=== PATIENT | male | born 1955 | race Caucasian/White ===

== ENCOUNTER → 2020-12-14 | Outpatient (CLI) | payer BC ==
[~2020-12-14] MED LIST: ASPI81TA45 PO; ATOR40TA78 PO; HYDR-826 PO; LORA-439 PO; METO50TA82 PO; OMEP-110 PO; SERT50TA28 PO
[2020-12-14 15:27] LABS: BASOPHILS % (AUTO) 1 % (0-1); EOSINOPHILS % (AUTO) 1 % (1-7); LYMPHOCYTES % (AUTO) 17 % (22-44); MEAN CORPUSCULAR HEMOGLOBIN 30.2 pg (27.5-34.5); MEAN CORPUSCULAR HGB CONC 33.8 g/dL (33.2-36.2); MEAN PLATELET VOLUME 8.8 fL (7.4-10.4); MONOCYTES % (AUTO) 5 % (2-9); NEUTROPHILS % (AUTO) 76 % (42-75); PLATELET COUNT 188 x10^3/uL (130-400); RED BLOOD COUNT 4.96 x10^6/uL (4.38-5.82); RED CELL DISTRIBUTION WIDTH 13.3 % (9.4-14.8)
[2020-12-14 15:29] LABS: MD NO
[2020-12-14 15:32] LABS: ALANINE AMINOTRANSFERASE 26 U/L (12-78); ANION GAP 6 mmol/L (5-15); CALCIUM 8.8 mg/dL (8.5-10.1); CHLORIDE 104 mmol/L (98-107)
[2020-12-14 15:34] LABS: ALKALINE PHOSPHATASE 83 U/L (45-117); BILIRUBIN,TOTAL 1.2 mg/dL (0.2-1.0); TOTAL PROTEIN 7.9 g/dL (6.4-8.2)
== END | disposition home or self-care (01) ==
LOC: STAR 14:03
PROVIDERS: ATTEND Surgery
DX: Z01.812 Encounter for preprocedural laboratory examination (principal); I45.2 Bifascicular block; Z20.822 Contact with and (suspected) exposure to COVID-19
CPT/HCPCS: 36415; 71046; 80053; 85025; 93005; U0003

== ENCOUNTER 2021-01-19 18:53 | Inpatient (IN) | payer BC ==
[~2021-01-19] VITALS: Ht 175.3 cm; Wt 70.2 kg
[~2021-01-19 18:53] MED LIST changes: +CEPH-376 PO; +CLOP75TA PO; +DOCU-131 PO; +OXYC5TAB98 PO
[2021-01-19] MEDS ORDERED: LORazepam 1MG TABLET ONE (19:29)
[2021-01-19] MEDS ORDERED: LORazepam 1MG TABLET PO ONE (19:30)
[2021-01-19] MEDS ORDERED: SODIUM CHLORIDE FLUSH 10ML SYR IVF ONE (19:30)
[2021-01-19] MEDS ORDERED: KRATOM (19:36)
[2021-01-19] MEDS ORDERED: CLOP75TA52 PO (19:38)
[2021-01-19 19:56] LABS: BASOPHILS % (AUTO) 1 % (0-1); EOSINOPHILS % (AUTO) 4 % (1-7); LYMPHOCYTES % (AUTO) 29 % (22-44); MEAN CORPUSCULAR HEMOGLOBIN 29.6 pg (27.5-34.5); MEAN CORPUSCULAR HGB CONC 33.5 g/dL (33.2-36.2); MEAN PLATELET VOLUME 9.3 fL (7.4-10.4); MONOCYTES % (AUTO) 6 % (2-9); NEUTROPHILS % (AUTO) 60 % (42-75); PLATELET COUNT 198 x10^3/uL (130-400); RED BLOOD COUNT 4.57 x10^6/uL (4.38-5.82)
[2021-01-19 20:05] LABS: ALANINE AMINOTRANSFERASE 19 U/L (12-78); ALBUMIN 3.9 g/dL (3.4-5.0); ANION GAP 7 mmol/L (5-15); CALCIUM 9.5 mg/dL (8.5-10.1); CHLORIDE 102 mmol/L (98-107); CREATININE 1.08 mg/dL (0.7-1.3)
[2021-01-19 20:08] LABS: ALKALINE PHOSPHATASE 77 U/L (45-117); BILIRUBIN,TOTAL 1.2 mg/dL (0.2-1.0); TOTAL PROTEIN 7.9 g/dL (6.4-8.2)
[2021-01-19 20:11] LABS: MD NO
--- NOTE | 2021-01-19 20:15 | NUR ---
PT REPORTS HE HAD GRAFT SURGERY LAST MONTH ON THE , SINCE THEN HIS INCISION ON THE RIGHT FEMORAL HAS OPENED AND HE HAS A WOUND. DR WISE AWARE. PT REPORTS DR WISE WANTED HIM TO COME IN AND POSSIBLY HAVE SURGERY. PT HAS SOME ANXIETY, PT GIVEN ATIVAN. VS STABLE. FAMILY AT BEDSIDE. CALL LIGHT IN PLACE.
--- NOTE | 2021-01-19 20:34 | NUR ---
PT REQUESTING A WAFFEL MATTRESS FOR COMFORT. PT ON MATTRESS. VS STABLE. BEDSIDE REPORT GIVEN TO STORM HOSKINS.
--- NOTE | 2021-01-19 20:42 | NUR ---
DR MCGINNIS HAS UPDATED PATIENT
[2021-01-19] MEDS ORDERED: LORazepam 2 MG/ML, 1ML ONE ×3 (20:44→22:41)
--- NOTE | 2021-01-19 20:50 | NUR ---
BIALTERAL DP PULSE NON-PALPABLE. HOWEVER BOTH WITH 2+ DOPPLER SIGNALS
--- NOTE | 2021-01-19 20:56 | NUR ---
REPORT FROM HENRIETTA INMAN PATIENT TO RADIOLOGY FOR CT OF LOWER EXTREMITIES
[2021-01-19] MEDS ORDERED: LORazepam 2 MG/ML, 1ML IVPush ONE ×3 (21:00→23:00)
--- NOTE | 2021-01-19 21:17 | NUR ---
medicated for continued agitation in CT New piv placed via ultrasound as prior piv infiltrated
[2021-01-19] MEDS ORDERED: OMNIPAQUE 350 MG/ML, 150 ML BOTTLE ONE (21:30)
[2021-01-19] MEDS ORDERED: HALOPERIDOL 5 MG/ML ONE ×2 (22:27→22:41)
[2021-01-19] MEDS ORDERED: HALOPERIDOL 5 MG/ML IV ONE ×2 (22:30→23:00)
--- NOTE | 2021-01-19 23:02 | NUR ---
Dr. montes able to dress foot and groin wounds Patient re-medicated for continued agitation once calm-covid swab obtained pre OR-walked to lab
[2021-01-20] MEDS ORDERED: HALOPERIDOL 5 MG/ML IM PRN
[2021-01-20] MEDS ORDERED: DOCUSATE 100 MG CAPSULE PO PRN (01:00)
[2021-01-20] MEDS ORDERED: MELATONIN 5 MG TABLET PO PRN (01:00)
[2021-01-20] MEDS ORDERED: ACETAMINOPHEN 325 MG TABLET PO PRN (01:00)
[2021-01-20] MEDS: ATORVASTATIN 40 MG TABLET PO SCH ×2 (01:00→19:53)
[2021-01-20] MEDS ORDERED: LIDODERM 5% PATCH TD PRN (01:00)
[2021-01-20 01:35] VITALS: BP 121/58
[2021-01-20 04:57] LABS: BASOPHILS % (AUTO) 2 % (0-1); EOSINOPHILS % (AUTO) 4 % (1-7); LYMPHOCYTES % (AUTO) 26 % (22-44); MEAN CORPUSCULAR HEMOGLOBIN 29.7 pg (27.5-34.5); MEAN CORPUSCULAR HGB CONC 33.5 g/dL (33.2-36.2); MEAN PLATELET VOLUME 9.1 fL (7.4-10.4); MONOCYTES % (AUTO) 9 % (2-9); NEUTROPHILS % (AUTO) 59 % (42-75); PLATELET COUNT 172 x10^3/uL (130-400); RED BLOOD COUNT 4.08 x10^6/uL (4.38-5.82); RED CELL DISTRIBUTION WIDTH 14.1 % (9.4-14.8)
[2021-01-20 05:09] LABS: ANION GAP 6 mmol/L (5-15); CALCIUM 9.2 mg/dL (8.5-10.1); CHLORIDE 104 mmol/L (98-107)
[2021-01-20 05:27] LABS: MD NO
[2021-01-20 05:45] LABS: MICROSCOPIC NOT IND
[2021-01-20 06:51] VITALS: BP 158/72
[2021-01-20] MEDS ORDERED: HEPARIN 1,000 UNITS/ML, 10ML ONE (07:58)
[2021-01-20] MEDS ORDERED: BACITRACIN 50,000 UNIT ONE (07:58)
[2021-01-20] MEDS ORDERED: THROMBIN 5,000 UNIT VIAL TP ONE (07:58)
[2021-01-20] MEDS: SERTRALINE 50MG TABLET PO SCH (09:00)
[2021-01-20] MEDS: OMEPRAZOLE 20 MG CAPSULE.DR PO SCH (09:00)
[2021-01-20] MEDS: CLOPIDOGREL 75 MG TABLET PO SCH (09:00)
[2021-01-20] MEDS: METOPROLOL TARTRATE 50 MG TAB PO SCH (09:00)
[2021-01-20] MEDS: LORATADINE 10 MG TABLET PO SCH (09:00)
[2021-01-20] MEDS: ASPIRIN 81 MG TABLET EC PO SCH (09:00)
[2021-01-20] MEDS ORDERED: ONDANSETRON 2MG/ML, 2ML ONE (09:04)
[2021-01-20] MEDS ORDERED: ROCURONIUM 10MG/ML,5ML ONE (09:04)
[2021-01-20] MEDS ORDERED: LIDOCAINE-MPF 2% ,5ML ONE (09:04)
[2021-01-20] MEDS ORDERED: DEXAMETHASONE 4 MG/ML, 1ML ONE (09:04)
[2021-01-20] MEDS ORDERED: PROPOFOL 10 MG/ML, 20ML ONE (09:04)
[2021-01-20] MEDS ORDERED: SODIUM CHLORIDE 0.9% PF 10ML ONE (09:04)
[2021-01-20] MEDS ORDERED: CEFAZOLIN 1,000 MG ONE (09:04)
[2021-01-20] MEDS ORDERED: FENTANYL PF 250 MCG/5ML ONE (09:04)
[2021-01-20] MEDS ORDERED: SUGAMMADEX 200 MG/2 ML IVPush ONE (09:35)
[2021-01-20] MEDS ORDERED: OXYcodone 5 MG/5 ML ORAL.SOL UDC PO PRN (10:00)
[2021-01-20] MEDS ORDERED: ALBUTEROL SULFATE 2.5 MG/3 ML NPPB PRN (10:00)
[2021-01-20] MEDS ORDERED: PROMETHAZINE 25 MG/ML, 1ML IV PRN (10:00)
[2021-01-20] MEDS ORDERED: LABETALOL 5MG/ML, 20ML IV PRN (10:00)
[2021-01-20] MEDS ORDERED: morphine SULFATE 10 MG/ML, 1ML IV PRN (10:00)
[2021-01-20] MEDS ORDERED: hydrALAzine 20 MG/ML, 1ML IV PRN (10:00)
[2021-01-20] MEDS ORDERED: MEPERIDINE/PF 25MG/0.5ML IVPush PRN (10:00)
[2021-01-20] MEDS ORDERED: FENTANYL PF 100 MCG/2ML IV PRN (10:00)
[2021-01-20] MEDS ORDERED: MIDAZOLAM 1 MG/ML, 2ML IV PRN (10:00)
[2021-01-20] MEDS ORDERED: ONDANSETRON 2MG/ML, 2ML IVPush PRN (10:00)
[2021-01-20] MEDS ORDERED: HYDROmorphone 2 MG/ML, 1ML IVPush PRN (10:00)
[2021-01-20] MEDS ORDERED: FENTANYL PF 100 MCG/2ML ONE (10:09)
[2021-01-20] MEDS ORDERED: OXYcodone 5 MG/5 ML ORAL.SOL UDC ONE (10:09)
[2021-01-20] MEDS ORDERED: HYDROmorphone 1 MG/ML, 1ML INJ ONE (10:09)
[2021-01-20 13:09] VITALS: BP 136/55
[2021-01-20] MEDS ORDERED: QUETIAPINE 25MG TABLET PO PRN (15:00)
[2021-01-20] MEDS ORDERED: PHARMACY INSTRUCTION MC PRN (15:00)
[2021-01-20] MEDS ORDERED: CEFAZOLIN 1,000 MG IM SCH (15:00)
[2021-01-20] MEDS ORDERED: INSTRUCTION SEE COMMENTS XX PRN (15:00)
[2021-01-20] MEDS: CEFAZOLIN PMX 1GM/50ML 50 ML IV SCH (15:45)
[2021-01-20 18:55] VITALS: BP 142/56
[2021-01-20] MEDS: MELATONIN 3 MG TABLET PO SCH (19:55)
[2021-01-20] MEDS ORDERED: CEFAZOLIN 1,000 MG IVPB SCH (23:00)
[2021-01-21] MEDS: CEFAZOLIN PMX 1GM/50ML 50 ML IV SCH ×2 (00:04→09:17)
[2021-01-21 02:34] VITALS: BP 122/67
[2021-01-21] MEDS: hydrOXyzine 10MG TABLET PO PRN ×2 (03:50→18:42)
[2021-01-21 04:18] VITALS: BP 141/82
[2021-01-21 05:04] LABS: BASOPHILS % (AUTO) 1 % (0-1); EOSINOPHILS % (AUTO) 1 % (1-7); LYMPHOCYTES % (AUTO) 23 % (22-44); MEAN CORPUSCULAR HEMOGLOBIN 29.9 pg (27.5-34.5); MEAN CORPUSCULAR HGB CONC 34.2 g/dL (33.2-36.2); MEAN PLATELET VOLUME 9.5 fL (7.4-10.4); MONOCYTES % (AUTO) 9 % (2-9); NEUTROPHILS % (AUTO) 66 % (42-75); PLATELET COUNT 159 x10^3/uL (130-400); RED BLOOD COUNT 3.77 x10^6/uL (4.38-5.82); RED CELL DISTRIBUTION WIDTH 13.9 % (9.4-14.8)
[2021-01-21 05:08] LABS: MD NO
[2021-01-21 05:17] LABS: CHLORIDE 103 mmol/L (98-107)
[2021-01-21 05:28] LABS: ALANINE AMINOTRANSFERASE 15 U/L (12-78); ALBUMIN 3.6 g/dL (3.4-5.0); ALKALINE PHOSPHATASE 60 U/L (45-117); ANION GAP 10 mmol/L (5-15); BILIRUBIN,TOTAL 1.1 mg/dL (0.2-1.0); CALCIUM 9.4 mg/dL (8.5-10.1); CREATININE 0.78 mg/dL (0.7-1.3)
[2021-01-21 07:10] VITALS: BP 156/66
[2021-01-21] MEDS: ASPIRIN 81 MG TABLET EC PO SCH (09:14)
[2021-01-21] MEDS: OMEPRAZOLE 20 MG CAPSULE.DR PO SCH (09:14)
[2021-01-21] MEDS: SERTRALINE 50MG TABLET PO SCH (09:14)
[2021-01-21] MEDS: CLOPIDOGREL 75 MG TABLET PO SCH (09:14)
[2021-01-21] MEDS: LORATADINE 10 MG TABLET PO SCH (09:14)
[2021-01-21] MEDS: METOPROLOL TARTRATE 50 MG TAB PO SCH (09:15)
[2021-01-21] MEDS ORDERED: VANCOMYCIN PER PHARMACY MC PRN (12:00)
[2021-01-21] MEDS ORDERED: CEFTRIAXONE 1,000 MG in DEXTROSE 5% 50 ML IVPB SCH (12:00)
[2021-01-21] MEDS ORDERED: PHARMACOKINETIC MONITORING MC PRN (12:00)
[2021-01-21] MEDS ORDERED: VANCOMYCIN 1,800 MG in SODIUM CHLORIDE 0.9% 250 ML IV ONE (12:00)
[2021-01-21] MEDS ORDERED: PHARMACOKINETIC CONSULTATION MC ONE (12:00)
[2021-01-21 13:55] VITALS: BP 112/66
[2021-01-21] MEDS: NICOTINE 21 MG/24 HR PATCH.TD24 TD SCH (18:00)
[2021-01-21 19:17] VITALS: BP 118/62
[2021-01-21] MEDS: ATORVASTATIN 40 MG TABLET PO SCH (20:18)
[2021-01-21] MEDS: MELATONIN 3 MG TABLET PO SCH (20:18)
[2021-01-22 01:35] VITALS: BP 154/75
[2021-01-22] MEDS ORDERED: VANCOMYCIN 1,800 MG in SODIUM CHLORIDE 0.9% 250 ML IV SCH (05:00)
[2021-01-22 05:08] LABS: BASOPHILS % (AUTO) 1 % (0-1); EOSINOPHILS % (AUTO) 2 % (1-7); LYMPHOCYTES % (AUTO) 28 % (22-44); MEAN CORPUSCULAR HEMOGLOBIN 29.4 pg (27.5-34.5); MEAN CORPUSCULAR HGB CONC 33.9 g/dL (33.2-36.2); MEAN PLATELET VOLUME 9.5 fL (7.4-10.4); MONOCYTES % (AUTO) 8 % (2-9); NEUTROPHILS % (AUTO) 61 % (42-75); PLATELET COUNT 175 x10^3/uL (130-400); RED BLOOD COUNT 4.11 x10^6/uL (4.38-5.82)
[2021-01-22 05:11] LABS: MD NO
[2021-01-22 05:15] LABS: ANION GAP 6 mmol/L (5-15); CALCIUM 9.1 mg/dL (8.5-10.1); CHLORIDE 105 mmol/L (98-107)
[2021-01-22 05:23] LABS: CREATININE 0.74 mg/dL (0.7-1.3)
[2021-01-22 07:03] VITALS: BP_SYST 129; BP_DIAS 0; BP_DIAS 70
[2021-01-22] MEDS: NICOTINE 21 MG/24 HR PATCH.TD24 TD SCH (08:12)
[2021-01-22] MEDS: OMEPRAZOLE 20 MG CAPSULE.DR PO SCH (08:13)
[2021-01-22] MEDS: ASPIRIN 81 MG TABLET EC PO SCH (08:13)
[2021-01-22] MEDS: SERTRALINE 50MG TABLET PO SCH (08:13)
[2021-01-22] MEDS: CLOPIDOGREL 75 MG TABLET PO SCH (08:14)
[2021-01-22] MEDS: METOPROLOL TARTRATE 50 MG TAB PO SCH (08:14)
[2021-01-22] MEDS: LORATADINE 10 MG TABLET PO SCH (08:15)
[2021-01-22] MEDS ORDERED: PIPERACILLIN/TAZO 3.375 GM in DEXTROSE 5% 50 ML IV SCH (10:00)
[2021-01-22 12:50] VITALS: BP 158/71
[2021-01-22] MEDS: CEFEPIME 2 GM in DEXTROSE 5% 100 ML IV SCH ×2 (15:20→23:19)
[2021-01-22] MEDS: PIPERACILLIN/TAZO 4.5 GM in DEXTROSE 5% 100 ML IVPB SCH ×2 (16:37→22:21)
[2021-01-22 19:09] VITALS: BP 110/55
[2021-01-22] MEDS: ATORVASTATIN 40 MG TABLET PO SCH (21:39)
[2021-01-22] MEDS: MELATONIN 3 MG TABLET PO SCH (21:39)
[2021-01-23 00:32] VITALS: BP 108/67
[2021-01-23] MEDS: PIPERACILLIN/TAZO 4.5 GM in DEXTROSE 5% 100 ML IVPB SCH ×4 (04:19→22:29)
[2021-01-23 05:41] LABS: BASOPHILS % (AUTO) 1 % (0-1); EOSINOPHILS % (AUTO) 4 % (1-7); LYMPHOCYTES % (AUTO) 30 % (22-44); MEAN CORPUSCULAR HEMOGLOBIN 29.7 pg (27.5-34.5); MEAN CORPUSCULAR HGB CONC 34.2 g/dL (33.2-36.2); MEAN PLATELET VOLUME 9.5 fL (7.4-10.4); MONOCYTES % (AUTO) 8 % (2-9); NEUTROPHILS % (AUTO) 57 % (42-75); PLATELET COUNT 190 x10^3/uL (130-400); RED BLOOD COUNT 4.24 x10^6/uL (4.38-5.82); RED CELL DISTRIBUTION WIDTH 13.8 % (9.4-14.8)
[2021-01-23 05:45] LABS: MD NO
[2021-01-23 05:53] LABS: ANION GAP 8 mmol/L (5-15); CALCIUM 8.9 mg/dL (8.5-10.1); CHLORIDE 102 mmol/L (98-107)
[2021-01-23 05:54] LABS: CREATININE 0.94 mg/dL (0.7-1.3)
[2021-01-23 06:32] VITALS: BP_SYST 117; BP_SYST 144; BP_DIAS 71; BP_DIAS 82
[2021-01-23] MEDS: CEFEPIME 2 GM in DEXTROSE 5% 100 ML IV SCH (06:32)
[2021-01-23] MEDS: CLOPIDOGREL 75 MG TABLET PO SCH (08:45)
[2021-01-23] MEDS: ASPIRIN 81 MG TABLET EC PO SCH (08:45)
[2021-01-23] MEDS: LORATADINE 10 MG TABLET PO SCH (08:45)
[2021-01-23] MEDS: NICOTINE 21 MG/24 HR PATCH.TD24 TD SCH (08:45)
[2021-01-23] MEDS: SERTRALINE 50MG TABLET PO SCH (08:45)
[2021-01-23] MEDS: METOPROLOL TARTRATE 50 MG TAB PO SCH (08:45)
[2021-01-23] MEDS: OMEPRAZOLE 20 MG CAPSULE.DR PO SCH (08:45)
[2021-01-23 13:50] VITALS: BP 120/68
[2021-01-23 19:38] VITALS: BP 99/65
[2021-01-23] MEDS: MELATONIN 3 MG TABLET PO SCH (20:52)
[2021-01-23] MEDS: ATORVASTATIN 40 MG TABLET PO SCH (20:52)
[2021-01-23] MEDS: TEMAZEPAM 15 MG CAPSULE PO SCH (22:29)
[2021-01-24] MEDS: PIPERACILLIN/TAZO 4.5 GM in DEXTROSE 5% 100 ML IVPB SCH ×3 (04:20→18:15)
[2021-01-24 04:23] VITALS: BP 155/66
[2021-01-24 07:05] VITALS: BP 174/119
[2021-01-24 07:07] VITALS: BP 174/68
[2021-01-24 07:52] VITALS: BP 130/72
[2021-01-24] MEDS: ASPIRIN 81 MG TABLET EC PO SCH (07:54)
[2021-01-24] MEDS: CLOPIDOGREL 75 MG TABLET PO SCH (07:54)
[2021-01-24] MEDS: METOPROLOL TARTRATE 50 MG TAB PO SCH (07:54)
[2021-01-24] MEDS: SERTRALINE 50MG TABLET PO SCH (07:55)
[2021-01-24] MEDS: OMEPRAZOLE 20 MG CAPSULE.DR PO SCH (07:55)
[2021-01-24] MEDS: LORATADINE 10 MG TABLET PO SCH (07:56)
[2021-01-24] MEDS: NICOTINE 21 MG/24 HR PATCH.TD24 TD SCH (08:02)
[2021-01-24] MEDS ORDERED: ALBUMIN HUMAN 25% 100 ML IV ONE (11:00)
[2021-01-24] MEDS ORDERED: SODIUM CHLORIDE 0.9%, 500ML IVBOLUS ONE (11:00)
[2021-01-24 13:57] VITALS: BP 132/72
[2021-01-24 19:28] VITALS: BP 128/62
[2021-01-24] MEDS: MELATONIN 3 MG TABLET PO SCH (20:14)
[2021-01-24] MEDS: ATORVASTATIN 40 MG TABLET PO SCH (20:14)
[2021-01-24] MEDS: TEMAZEPAM 15 MG CAPSULE PO SCH (21:51)
[2021-01-25] MEDS: PIPERACILLIN/TAZO 4.5 GM in DEXTROSE 5% 100 ML IVPB SCH ×4 (00:23→18:04)
[2021-01-25 01:05] VITALS: BP 102/67
[2021-01-25 06:05] LABS: BASOPHILS % (AUTO) 3 % (0-1); EOSINOPHILS % (AUTO) 8 % (1-7); HCT (SEDRATE) 35.6 % (39.2-51.8); LYMPHOCYTES % (AUTO) 38 % (22-44); MEAN CORPUSCULAR HEMOGLOBIN 29.5 pg (27.5-34.5); MEAN CORPUSCULAR HGB CONC 33.6 g/dL (33.2-36.2); MEAN PLATELET VOLUME 9.5 fL (7.4-10.4); MONOCYTES % (AUTO) 9 % (2-9); NEUTROPHILS % (AUTO) 43 % (42-75); PLATELET COUNT 190 x10^3/uL (130-400); RED BLOOD COUNT 4.07 x10^6/uL (4.38-5.82); RED CELL DISTRIBUTION WIDTH 13.9 % (9.4-14.8)
[2021-01-25 06:17] LABS: ALBUMIN 3.3 g/dL (3.4-5.0); ANION GAP 7 mmol/L (5-15); CALCIUM 8.8 mg/dL (8.5-10.1); CHLORIDE 109 mmol/L (98-107)
[2021-01-25 06:21] LABS: ALANINE AMINOTRANSFERASE 20 U/L (12-78); ALKALINE PHOSPHATASE 53 U/L (45-117); BILIRUBIN,TOTAL 0.9 mg/dL (0.2-1.0); C-REACTIVE PROTEIN, QUANT 0.57 mg/dL (0.02-0.49); CREATININE 0.72 mg/dL (0.7-1.3); TOTAL PROTEIN 6.5 g/dL (6.4-8.2)
[2021-01-25 06:32] LABS: MD SCAN
[2021-01-25 07:16] VITALS: BP 110/70
[2021-01-25 08:49] VITALS: BP 118/66
[2021-01-25] MEDS: NICOTINE 21 MG/24 HR PATCH.TD24 TD SCH (08:50)
[2021-01-25] MEDS: OMEPRAZOLE 20 MG CAPSULE.DR PO SCH (08:50)
[2021-01-25] MEDS: ASPIRIN 81 MG TABLET EC PO SCH (08:51)
[2021-01-25] MEDS: SERTRALINE 50MG TABLET PO SCH (08:51)
[2021-01-25] MEDS: CLOPIDOGREL 75 MG TABLET PO SCH (08:51)
[2021-01-25] MEDS: LORATADINE 10 MG TABLET PO SCH (08:52)
[2021-01-25] MEDS: METOPROLOL TARTRATE 50 MG TAB PO SCH (08:52)
[2021-01-25] MEDS ORDERED: morphine SULFATE 10 MG/ML, 1ML IVPush PRN (10:00)
[2021-01-25 13:35] VITALS: BP 101/56
[2021-01-25] MEDS ORDERED: POTASSIUM CHLORIDE 20 MEQ TAB.ER.PRT PO ONE (17:30)
[2021-01-25 19:25] VITALS: BP 122/68
[2021-01-25] MEDS: MELATONIN 3 MG TABLET PO SCH (21:00)
[2021-01-25] MEDS: ATORVASTATIN 40 MG TABLET PO SCH (21:51)
[2021-01-25] MEDS: TEMAZEPAM 15 MG CAPSULE PO SCH (21:51)
[2021-01-26] MEDS: PIPERACILLIN/TAZO 4.5 GM in DEXTROSE 5% 100 ML IVPB SCH ×2 (00:23→06:05)
[2021-01-26 01:36] VITALS: BP 151/73
[2021-01-26 07:22] VITALS: BP 144/81
[2021-01-26] MEDS: LORATADINE 10 MG TABLET PO SCH (09:00)
[2021-01-26 09:22] VITALS: BP 121/76
[2021-01-26] MEDS: CLOPIDOGREL 75 MG TABLET PO SCH (09:26)
[2021-01-26] MEDS: NICOTINE 21 MG/24 HR PATCH.TD24 TD SCH (09:26)
[2021-01-26] MEDS: SERTRALINE 50MG TABLET PO SCH (09:26)
[2021-01-26] MEDS: ASPIRIN 81 MG TABLET EC PO SCH (09:26)
[2021-01-26] MEDS: OMEPRAZOLE 20 MG CAPSULE.DR PO SCH (09:27)
[2021-01-26] MEDS: METOPROLOL TARTRATE 50 MG TAB PO SCH (09:27)
[2021-01-26] MEDS ORDERED: MELA5TAB14 PO (11:03)
[2021-01-26] MEDS ORDERED: NICO-587 TD (11:03)
[2021-01-26] MEDS ORDERED: OXYC5TAB98 PO (11:03)
[2021-01-26] MEDS ORDERED: PIPE4.5F2 IV (11:35)
[2021-01-26 12:01] VITALS: BP 132/66
== END 2021-01-26 12:45 | disposition home health service (06) | DRG 901 ==
LOC: ED 19:42 → EDIP 22:19 → 4NE 23:07
PROVIDERS: ADMIT Family Medicine; ATTEND Internal Medicine
PROC: 0JB70ZZ Excision of Back Subcutaneous Tissue and Fascia, Open Approach (ICD-10-PCS; principal; 2021-01-20 09:00)
PROC: 02HV33Z Insertion of Infusion Device into Superior Vena Cava, Percutaneous Approach (ICD-10-PCS; 2021-01-24)
PROC: B5181ZA Fluoroscopy of Superior Vena Cava using Low Osmolar Contrast, Guidance (ICD-10-PCS; 2021-01-24)
PROC: B548ZZA Ultrasonography of Superior Vena Cava, Guidance (ICD-10-PCS; 2021-01-24)
DX: T81.30XA Disruption of wound, unspecified, initial encounter (principal); G92 Toxic encephalopathy; E87.1 Hypo-osmolality and hyponatremia; B96.5 Pseudomonas (aeruginosa) (mallei) (pseudomallei) as the cause of diseases classified elsewhere; K46.9 Unspecified abdominal hernia without obstruction or gangrene; K05.6 Periodontal disease, unspecified; I25.10 Atherosclerotic heart disease of native coronary artery without angina pectoris; I10 Essential (primary) hypertension; F17.210 Nicotine dependence, cigarettes, uncomplicated; F15.10 Other stimulant abuse, uncomplicated; F14.10 Cocaine abuse, uncomplicated; F11.10 Opioid abuse, uncomplicated; F10.10 Alcohol abuse, uncomplicated; E78.5 Hyperlipidemia, unspecified; F41.0 Panic disorder [episodic paroxysmal anxiety]; Z20.822 Contact with and (suspected) exposure to COVID-19; I73.9 Peripheral vascular disease, unspecified; Z95.1 Presence of aortocoronary bypass graft; Z79.899 Other long term (current) drug therapy
CPT/HCPCS: 36415; 96374; 96375; 99285; J3490; 36573; 75635; 80048; 80053; 81003; 83605; 83735; 85025; 85651; 86140; 87040; 87070; 87075; 87077; 87186; 87205; 87635; 93005; G0378; J0690; J0696; J1100; J1644; J2405; J2543; J2704; J3010; J3370; Q9967; C1751; J1630; J2060; J2270; J7050

== ENCOUNTER 2021-04-21 11:35 | Day surgery (SDC) | payer BC ==
[2021-04-20 09:47] LABS: BASOPHILS % (AUTO) 1 % (0-1); EOSINOPHILS % (AUTO) 1 % (1-7); LYMPHOCYTES % (AUTO) 18 % (22-44); MEAN CORPUSCULAR HEMOGLOBIN 28.6 pg (27.5-34.5); MEAN CORPUSCULAR HGB CONC 33.6 g/dL (33.2-36.2); MEAN PLATELET VOLUME 8.9 fL (7.4-10.4); MONOCYTES % (AUTO) 8 % (2-9); NEUTROPHILS % (AUTO) 71 % (42-75); PLATELET COUNT 209 x10^3/uL (130-400); RED BLOOD COUNT 4.63 x10^6/uL (4.38-5.82)
[2021-04-20 09:57] LABS: ANION GAP 6 mmol/L (5-15); CHLORIDE 99 mmol/L (98-107); CREATININE 1.03 mg/dL (0.7-1.3)
[~2021-04-21] VITALS: Ht 175.3 cm; Wt 66.3 kg
[~2021-04-21 11:35] MED LIST changes: +BACI1CAP6 PO; +CLOP75TA52 PO; +KRATOM; +LEVO500T8 PO; +MELA5TAB14 PO; +NICO-587 TD; +PIPE4.5F2 IV; +TRAZ50TA66 PO
[2021-04-21] MEDS ORDERED: D5%-0.45% NACL 1,000 ML IV SCH (12:30)
[2021-04-21 13:06] VITALS: BP 106/61
[2021-04-21] MEDS ORDERED: VISIPAQUE 270 MG/ML, 50ML BOTTLE ONE (13:30)
[2021-04-21] MEDS ORDERED: HEPARIN 1,000 UNITS/ML, 10ML ONE (14:08)
[2021-04-21] MEDS ORDERED: PROTAMINE SULFATE 10 MG/ML, 25ML ONE (14:08)
[2021-04-21] MEDS ORDERED: MIDAZOLAM 1 MG/ML, 5ML ONE (14:08)
[2021-04-21] MEDS ORDERED: FENTANYL PF 100 MCG/2ML ONE (14:08)
[2021-04-21] MEDS ORDERED: FLUMAZENIL 0.1 MG/1 ML, 5ML ONE (14:08)
[2021-04-21] MEDS ORDERED: NALOXONE 1 MG/ML, 2ML ONE (14:08)
[2021-04-21] MEDS ORDERED: LIDOCAINE 1%, 20ML ONE (14:32)
[2021-04-21 17:52] LABS: ALBUMIN 2.7 g/dL (3.4-5.0)
[2021-04-21 17:56] LABS: PREALBUMIN 12.3 mg/dL (20.0-40.0)
== END 2021-04-21 18:40 | disposition home or self-care (01) ==
LOC: OUT 11:35
PROVIDERS: ATTEND Surgery
DX: I70.713 Atherosclerosis of other type of bypass graft(s) of the extremities with intermittent claudication, bilateral legs (principal); I25.10 Atherosclerotic heart disease of native coronary artery without angina pectoris; I65.23 Occlusion and stenosis of bilateral carotid arteries; I10 Essential (primary) hypertension; F41.9 Anxiety disorder, unspecified; F10.21 Alcohol dependence, in remission; F17.210 Nicotine dependence, cigarettes, uncomplicated; Z79.02 Long term (current) use of antithrombotics/antiplatelets; Z79.82 Long term (current) use of aspirin; Z79.899 Other long term (current) drug therapy; Z88.5 Allergy status to narcotic agent; Z88.8 Allergy status to other drugs, medicaments and biological substances; Z98.890 Other specified postprocedural states; Z82.49 Family history of ischemic heart disease and other diseases of the circulatory system; Z80.9 Family history of malignant neoplasm, unspecified
CPT/HCPCS: 36415; 37184; 37224; 75716; 80048; 82040; 84134; 85025; 99156; 99157; C1725; C1751; C1757; C1769; C1894; C2623; J1644; J2250; J3010; Q0177; Q9966; 75710; J2720; J2310